=== PATIENT | male | born 1975 | race Caucasian/White ===

== ENCOUNTER → 2016-12-29 | Outpatient (CLI) | payer OTHER ==
[2016-12-29 19:24] LABS: Basophils % (A) 0 %; CH 31.3; CHCM 33.5; Eosinophils # (A) 0.1 k/uL (0-0.7); Eosinophils % (A) 1 %; HCT 46.1 % (39.0-53.0); HDW 2.27; HGB 14.7 gm/dL (13.0-17.5); Luc # (Auto) 0.08; Luc % (Auto) 2; Lymphocytes # (A) 1.2 k/uL (1.0-4.8); Lymphocytes % (A) 25 %; MCH 29.8 pg (25.0-35.0); MCHC 31.8 g/dL (31.0-37.0); MCV 93.9 fL (80.0-100.0); Mean Platelet Volume 7.3; Monocytes # (A) 0.3 k/uL (0-1.0); Monocytes % (A) 6 %; Neutrophils # (A) 3.1 k/uL (1.3-7.7); Neutrophils % (A) 66 %; RBC 4.91 m/uL (4.30-5.90); RDW 13.5 % (11.5-15.5); WBC 4.6 k/uL (3.8-10.6); WBC (Perox) 4.86
[2016-12-29 19:35] LABS: ALT 59 U/L (21-72); AST 35 U/L (17-59); Alkaline Phosphatase 62 U/L (38-126); Anion Gap 12 mmol/L; Blood Urea Nitrogen 17 mg/dL (9-20); Calcium 9.4 mg/dL (8.4-10.2); Carbon Dioxide 25 mmol/L (22-30); Chloride 101 mmol/L (98-107); Cholesterol 213 mg/dL (<200); Glucose 82 mg/dL (74-99); HDL Cholesterol 36 mg/dL (40-60); Non-African American GFR(MDRD) >60 (>60 ml/min/1.73 sqM); Sodium 138 mmol/L (137-145); Total Bilirubin 0.8 mg/dL (0.2-1.3); Total Protein 7.1 g/dL (6.3-8.2)
== END ==
LOC: MMGSC 15:59
PROVIDERS: ATTEND Family Medicine
DX: Z00.00 Encounter for general adult medical examination without abnormal findings (principal); I10 Essential (primary) hypertension
CPT/HCPCS: 36415; 80053; 80061; 84439; 84443; 85025

== ENCOUNTER → 2018-08-02 | Outpatient (CLI) | payer OTHER ==
--- NOTE | 2018-08-02 10:35 | US ---
EXAMINATION TYPE: US liver DATE OF EXAM: 08/02/2018 COMPARISON: NONE CLINICAL HISTORY: R94.5 Abnormal results of liver function studies. Abnormal liver function test, occ asional RUQ tenderness EXAM MEASUREMENTS: Liver Length: 16.9 cm Gallbladder Wall: 0.2 cm CBD: 0.4 cm Right Kidney: 11.7 x 4.2 x 6.1 cm Pancreas: visualized portions are heterogenous, limited by overlying midline bowel gas Liver: There is increased echogenicity of the hepatic parenchyma with diminished visualization of th e portal triads most commonly relating to hepatic steatosis and limiting evaluation for underlying he patic masses. Gallbladder: wnl Evidence for sonographic King's sign: no CBD: wnl Right Kidney: wnl IMPRESSION: 1. Findings most commonly related to hepatic steatosis overall appearing mild in degree. Correlate wi th liver function tests results. 2. Suboptimally visualized heterogenous pancreas. Correlate with serum amylase and lipase.
== END | disposition home or self-care (01) ==
LOC: RADUSWWP 07:28
PROVIDERS: ATTEND Family Medicine
DX: R93.2 Abnormal findings on diagnostic imaging of liver and biliary tract (principal); R94.5 Abnormal results of liver function studies
CPT/HCPCS: 76705

== ENCOUNTER 2018-09-30 10:27 | Day surgery (SDC) | payer OTHER ==
[2018-09-28 18:01] VITALS: BMI 28.4
[~2018-09-30 10:27] MED LIST: LACTATED RINGERS 1,000 ML IV SCH
[2018-09-30 11:17] VITALS: RESP 16; TEMP 97.9
[2018-09-30] MEDS ORDERED: LIDOCAINE 1% INJ 10MG/ML (20 ML MDV) ONE (12:23)
[2018-09-30] MEDS ORDERED: PROPOFOL 10 MG/ML 20 ML VIAL IV ONE (12:23)
--- NOTE | 2018-09-30 12:34 | P.PCN ---
Date of Procedure: 09/30/18 Procedure(s) Performed: BRIEF HISTORY: Patient is a 43-year-old, pleasant, male, scheduled for an upper endoscopy as a part of a transient long-standing history of GERD. He is been having intermittent dysphagia to solids. His and scheduled for an upper endoscopy with possible dilation today. PROCEDURE PERFORMED: Esophagogastroduodenoscopy with biopsy. PREOPERATIVE DIAGNOSIS: GERD/intermittent dysphagia to solids. IV sedation per anesthesia. PROCEDURE: After informed consent was obtained, the patient was brought into the endoscopy unit. IV sedation was administered by Anesthesia under continuous monitoring. Initially the Olympus GIF-140 video endoscope was inserted into the mouth. Esophagus intubated without any difficulty. It was gradually advanced into the stomach and duodenum and carefully examined. The bulb and the second part of the duodenum appeared normal. The scope at this time was withdrawn to the stomach, adequately insufflated with air, and upon careful examination, mucosa of the antrum had mild gastritis and biopsies were done from this area. The, body, cardia and the fundus appeared normal. The scope was then withdrawn into the esophagus. The GE junction was located at 39 cm from the incisors. The esophagus appeared normal. There were no erosions or ulcerations seen, no evidence of esophageal stricture. Multiple biopsies were done from the distal esophagus to rule out eosinophilic esophagitis and the patient tolerated the procedure well. IMPRESSION: 1. Normal-appearing esophagus with no evidence of esophagitis or esophageal stricture. 2. Mild antral gastritis. RECOMMENDATIONS: The findings of this examination were discussed with the patient as well as his family. He was advised to follow with the biopsy results. He will continue with Prilosec 20 mg daily and follow antireflux measures..
[2018-09-30 13:04] VITALS: BP 120/71; PULSE 61
== END 2018-09-30 13:20 | disposition home or self-care (01) ==
LOC: ORWHC2ENDO 10:27
PROVIDERS: ATTEND Internal Medicine Gastroenterology
DX: K29.50 Unspecified chronic gastritis without bleeding (principal); K21.0 Gastro-esophageal reflux disease with esophagitis; I10 Essential (primary) hypertension; Z79.899 Other long term (current) drug therapy; Z87.442 Personal history of urinary calculi
CPT/HCPCS: 88305; 43239; J2001; J2704

== ENCOUNTER → 2021-05-19 | Outpatient (CLI) | payer OTHER ==
--- NOTE | 2021-05-19 11:40 | P.STRESS ---
- Stress Test Note Stress Test Results/Findings: Exam Performed: NM stress cardiolite complete Exam Date: 05/19/21 Reason for Exam: CHEST PAIN Height: 6 ft 5 in Weight: 111.13 kg Protocol: CARDIOLITE Stage: 4 Duration of Exercise: 10:00 Resting Heart Rate: 61 Resting Blood Pressure: 138/82 Maximum Achieved Heart Rate: 171 Maximum Achieved Blood Pressure: 204/76 85% PMHR: 149 100% PMHR: 175 METS: 12.1 Technologist Comment: Stress Test Results/Findings: This is a 45-year-old gentleman with history of hypertension, hypercholesterolemia, being evaluated for symptoms of chest pain and palpitations. Stress data: Baseline EKG showed sinus rhythm with normal MS interval and QRS duration. Blood pressure at rest is 138/82 with pulse rate of 66. Patient walked on the Vladislav protocol for 10 minutes achieving a maximal heart rate of 171 with a blood pressure of 205/84. EKGs taken during and after the exercise did not reveal any significant changes from the baseline. Patient did not experience any chest pain. No arrhythmias are noted. Final impression: #1. Negative stress test #2. Excellent exercise capacity #3. No arrhythmias noted. #4. Report on the nuclear images to be provided by the radiologist.
--- NOTE | 2021-05-19 12:56 | NM ---
EXAMINATION TYPE: NM stress cardiolite complete DATE OF EXAM: 05/19/2021 COMPARISON: NONE HISTORY: Chest pain TECHNIQUE: After the intravenous administration of 9.92 mCi Tc 99m Sestamibi - Rest images obtained 45 minutes post injection. The patient exercised using a SONAL protocol and 1 minute prior to peak exercise was injected with 24.6 mCi Tc 99m Sestamibi - Stress images obtained 15 minutes post injecti on. FINDINGS: Targeted heart rate was achieved during performance of the study patient achieved 98% of predicted ma ximal heart rate. Review of stress and rest SPECT images demonstrates some decreased uptake along the inferior wall more so on rest imaging than on stress imaging however. Along the lateral wall towards the base of the heart there is some decreased uptake at stress as compared to rest images. Gated herminio lysis shows normal wall motion with an estimated left ventricular ejection fraction of 61 %. IMPRESSION: Stress-induced left ventricular myocardial ischemia. Results relayed telephonically to the referring clinician's office at time of interpretation at exam.
--- NOTE | 2021-05-19 14:08 | ECHOS ---
Stress Test Results/Findings: Exam Performed: NM stress cardiolite complete Exam Date: 05/19/21 Reason for Exam: CHEST PAIN Height: 6 ft 5 in Weight: 111.13 kg Protocol: CARDIOLITE Stage: 4 Duration of Exercise: 10:00 Resting Heart Rate: 61 Resting Blood Pressure: 138/82 Maximum Achieved Heart Rate: 171 Maximum Achieved Blood Pressure: 204/76 85% PMHR: 149 100% PMHR: 175 METS: 12.1 Technologist Comment: Stress Test Results/Findings: This is a 45-year-old gentleman with history of hypertension, hypercholesterolemia, being evaluated for symptoms of chest pain and palpitations. Stress data: Baseline EKG showed sinus rhythm with normal [place] interval and QRS duration. Blood pressure at rest is 138/82 with pulse rate of 66. Patient walked on the Vladislav protocol for 10 minutes achieving a maximal heart rate of 171 with a blood pressure of 205/84. EKGs taken during and after the exercise did not reveal any significant changes from the baseline. Patient did not experience any chest pain. No arrhythmias are noted. Final impression: #1. Negative stress test #2. Excellent exercise capacity #3. No arrhythmias noted. #4. Report on the nuclear images to be provided by the radiologist. JOURDAN
== END | disposition home or self-care (01) ==
LOC: RADNMMAIN 08:39
PROVIDERS: ATTEND Family Medicine
DX: I25.9 Chronic ischemic heart disease, unspecified (principal)
CPT/HCPCS: 93017; 78452; A9500

== ENCOUNTER → 2023-02-24 | Outpatient (CLI) | payer OTHER ==
--- NOTE | 2023-02-28 22:02 | MR ---
EXAMINATION TYPE: MR lumbar spine wo con DATE OF EXAM: 02/24/2023 COMPARISON: None HISTORY: 47-year-old male M47.816, Back pain into left leg TECHNIQUE: Multiplanar, multisequence images of the lumbar spine were acquired without IV contrast. FINDINGS: Mild multilevel degenerative disc disease characterized by a variable disc desiccation and disc space narrowing as well as disc bulging. Vertebral body heights are preserved. Trace grade 1 retrolisthesis L4-L5. Facet arthropathy throughout greatest in the mid and lower lumbar spine. Bulging disc and ligamentum flavum thickening mildly narrow the spinal canal at L2-L3 and L3-L4. Conus medullaris is normal. Fatty Modic type II endplate change toward the right at L4-L5 and towards the left L5-S1. No suspicio us bone marrow replacement. No prevertebral or paravertebral soft tissue abnormality seen. On the right, changes result in moderate neural foraminal stenosis at L4-L5 with disc material possib ly abutting the extraforaminal right L4 nerve root. Mild to moderate at L3-L4 with an intraforaminal annular fissure noted. On the left, there is moderate to severe neuroforaminal stenosis at L4-L5 and L5-S1. IMPRESSION: 1. Mild multilevel degenerative disc disease, more mild to moderate in the lower lumbar spine. 2. Facet arthropathy throughout. Degenerative trace grade 1 retrolisthesis L4-L5. 3. Changes contribute to very mild narrowing of the spinal canal at L2/L3 and L3-L4 without any signi ficant spinal canal stenosis. 4. On the left, there is moderate to severe neuroforaminal stenosis at L4-L5 and L5-S1. 5. On the right, there is moderate neuroforaminal stenosis at L4-L5 but with disc material possibly a butting the extraforaminal right L4 nerve root. Mild to moderate neuroforaminal stenosis at L3-L4 wit h an intraforaminal annular fissure noted just adjacent.
== END | disposition home or self-care (01) ==
LOC: RADMRIMAIN 06:16
PROVIDERS: ATTEND Physical Medicine & Rehabilitation
DX: M47.816 Spondylosis without myelopathy or radiculopathy, lumbar region (principal); M43.16 Spondylolisthesis, lumbar region; M48.061 Spinal stenosis, lumbar region without neurogenic claudication; M51.36 Other intervertebral disc degeneration, lumbar region
CPT/HCPCS: 72148